=== PATIENT | male | born 1965 | race Hispanic/Latino ===

== ENCOUNTER → 2016-07-11 | Day surgery (SDC) | payer OTHER ==
[~2016-07-11] VITALS: Ht 185.4 cm; Wt 104.3 kg
[~2016-07-11] MED LIST: ALBU17IN INH; BACITRACIN PWD 50,000 UNITS VIAL As Ordered ONE; BUPIVACAINE HCL 0.5% 30 ML VIAL As Ordered ONE; LIDOCAINE 2% INJ 100 MG/5 ML SDV (FOR ANES.) As Ordered ONE; LIDOCAINE 2% MDV 20 ML VIAL As Ordered ONE; LR 1,000 ML IV ONE; MIDAZOLAM INJ 2 MG/2 ML VIAL (J2250) As Ordered ONE; NEOSPORIN GU IRRIG 20 ML VIAL IR ONE; PHENYLephrine HCL 500 MCG/5 ML (100MCG/ML) SYRINGE (J2370) As Ordered ONE; PROPOFOL 200 MG/20 ML VIAL As Ordered ONE; PROPOFOL 500 MG/50 ML VIAL As Ordered ONE; VANCOMYCIN HCL 1,000 MG, VIAL MATE ADAPTER 1 EACH in D5W 250 ML IV ONE; dexameTHASONE 4 MG/ML 1ML VIAL (J1100) As Ordered ONE; fentaNYL 100 MCG/2 ML INJECTION (J3010) As Ordered ONE
--- NOTE | 2016-07-11 11:47 | REP ---
REASON: Postop. Derotation osteotomy sites involving the proximal phalanges of digits 2 through 5 with internal fixators involving digits 2 through 4. The alignment is near anatomical. There is postoperative soft tissue swelling. Signed by Kade Quick DO 07/11/2016 12:25 P
[2016-07-11 14:00] VITALS: BP 120/75
--- NOTE | 2016-07-11 19:39 | RO ---
DATE OF PROCEDURE: 07/11/2016 PREPROCEDURE DIAGNOSIS: Hammer toe deformity second toe left foot, hammer toe deformity third toe left foot, hammer toe deformity fourth toe left foot, hammer toe deformity fifth toe left foot. POSTPROCEDURE DIAGNOSIS: Hammer toe deformity second toe left foot, hammer toe deformity third toe left foot, hammer toe deformity fourth toe left foot, hammer toe deformity fifth toe left foot. PROCEDURE: 1. Proximal interphalangeal joint fusion with DigiFuse 2.5 x 10 degree angled second toe left foot. 2. Proximal interphalangeal joint fusion with DigiFuse 2.0 x 10 degree angled third toe left foot. 3. Proximal interphalangeal joint fusion with DigiFuse 2.0 x 0 degree angled fourth toe left foot. 4. Proximal interphalangeal joint arthroplasty fifth toe left foot. 5. Dorsal capsulotomy second metatarsophalangeal joint left foot. 6. Dorsal capsulotomy third metatarsophalangeal joint left foot. 7. Dorsal capsulotomy fourth metatarsophalangeal joint left foot. SURGEON: Eugene Singh DPM [employer] SUPERINT[employer]ENT: None. ANESTHESIA: Local MAC. IRRIGATION: Dilute bacitracin, neomycin and polymyxin B solutions. HARDWARE UTILIZED: DigiFuse 2.0 x 10 degree angled, DigiFuse 2.5 x 10 degree angled and a DigiFuse 2.0 x 0 degree angled. HEMOSTASIS: Ankle pneumatic tourniquet at 200 mmHg for 63 minutes. DESCRIPTION OF PROCEDURE: On 07/11/2016, this 51-year-old black male was taken from his hospital room to the operating room and placed on the operating table in the supine position. Following the induction of IV sedation and local and regional anesthesia, the left lower extremity was prepped and draped in the usual aseptic manner. Left lower extremity was elevated 45 degrees from the horizontal plane for the purpose of preoperative exsanguination of the limb. During this 3-minute time period, an ankle pneumatic tourniquet was applied just proximal to the medial and lateral malleolus, well-padded site. To further exsanguinate the limb, a Felipe's Esmarch bandage was placed circumferentially extending from digits to distal edge of ankle pneumatic tourniquet. Ankle pneumatic tourniquet was rapidly inflated to 200 mmHg for the purpose of intraoperative hemostasis. Felipe's Esmarch bandage was removed. The left lower extremity was returned to the operating table, sterile draping was completed and the following procedure was performed: PROXIMAL INTERPHALANGEAL JOINT FUSION WITH DIGIFUSE 2.5 x 10 DEGREE ANGLED SECOND TOE LEFT FOOT: Attention was directed to the patient's second toe of the left foot where an incision was made distal to the second metatarsophalangeal joint over the proximal interphalangeal joint of the second toe. The incision was deepened through the subcutaneous tissues and all coursing venous tributaries were identified, underscored, clamp, cut, ligated and electrocoagulated as necessary. Transverse tenotomy and capsulotomy was performed at the level of the metatarsophalangeal joint and the extensor expansion and stephens was released to the level of the metatarsophalangeal joint. The medial and lateral collateral ligaments were then sharply dissected free from the head of the proximal phalanx. Utilizing a power saw, an osteotomy was performed at the level of the anatomical neck of the proximal phalanx from dorsal to plantar through and through and this was extirpated from the wound in toto. The cartilage at the base of the middle phalanx was osteotomized from dorsal to plantar just encompassing the articular cartilage and this was removed. The wound was flushed with copious amounts of dilute bacitracin, neomycin and polymyxin B solution. Utilizing a 2.5 x 10 degree angled DigiFuse in the standard manner, the proximal interphalangeal joint was fixated. The toe was still noted to be in a somewhat dorsal position; therefore, the following procedure was performed: SECOND METATARSOPHALANGEAL JOINT CAPSULOTOMY: The skin incision was then tented in a dorsal direction and utilizing a 67 blade, the dorsal capsule was released. The wound was flushed with copious amounts of dilute bacitracin, neomycin and polymyxin B solution. The extensor tendon was repaired with a #4-0 braided nylon looped suture and a four-stranded Cervantes core repair was performed. A peripheral stitch was then added with #4-0 braided nylon suture. Skin was then coapted and maintained with #4-0 Prolene in a simple interrupted and horizontal mattress type fashion. Attention was then directed to the patient's third toe of the left foot. The following procedure was performed: PROXIMAL INTERPHALANGEAL JOINT FUSION WITH DIGIFUSE 2.0 x 10 DEGREE ANGLED THIRD TOE LEFT FOOT: Attention was directed to the patient's third toe of the left foot. The procedure performed on the second toe was now performed on the third toe with the following variation: The DigiFuse size was a 2.0 x 10 degree angled. There was no other variations or deletions. Attention was then directed to the third metatarsophalangeal joint where the following procedure was performed: DORSAL CAPSULOTOMY THIRD METATARSOPHALANGEAL JOINT LEFT FOOT: Attention was directed to the patient's third metatarsophalangeal joint where the procedure performed on the second metatarsophalangeal joint was now performed on the third metatarsophalangeal joint without variation or deletion, the only exception being that of anatomical location. Attention was then directed to the patient's fourth toe of the left foot where the following procedure was performed: PROXIMAL INTERPHALANGEAL JOINT FUSION WITH DIGIFUSE 2.0 X 0 DEGREE ANGLED, FOURTH TOE LEFT FOOT: Attention was directed to the patient's fourth toe of the left foot. The procedure performed on the second toe was now performed on the fourth toe with the following variation: A 2.0 x 0 degree DigiFuse was utilized. Attention was then directed to the fourth metatarsophalangeal joint where the following procedure was performed: FOURTH METATARSOPHALANGEAL JOINT DORSAL CAPSULOTOMY: Attention was directed to the patient's fourth metatarsophalangeal joint capsule where the procedure performed on the second metatarsophalangeal joint was now performed on the fourth metatarsophalangeal joint without variation or deletion, the only exception being that of anatomical location. Attention was then directed to the patient's fifth toe where the following procedure was performed: PROXIMAL INTERPHALANGEAL JOINT ARTHROPLASTY FIFTH TOE LEFT FOOT: Attention was directed to the patient's fifth toe of the left foot. There was noted to be a hammer toe deformity. At this time, a 2 cm incision was placed over the proximal interphalangeal joint of the fifth toe. The incision was deepened through subcutaneous tissues and all coursing venous tributaries were identified, underscored, clamped, cut, ligated and electrocoagulated as necessary. A linear tenotomy was then performed in the same plane as the original skin incision and the extensor tendon was released to the level of the metatarsophalangeal joint. Utilizing a power saw, an osteotomy was then performed at the level of the anatomical neck of the proximal phalanx from dorsal to plantar, medial to lateral, through and through. This was extirpated from the wound in toto. The wound was flushed with copious amounts of dilute bacitracin, neomycin and polymyxin B solution. Utilizing a #4-0 braided nylon loop suture, a four-stranded Cervantes core repair was performed and additionally reinforced with #4-0 braided nylon peripheral stitch. Skin was coapted and maintained with #4-0 Prolene in a simple interrupted and horizontal mattress type fashion. Following the completion of the surgical procedure, 4 mg of dexamethasone sodium phosphate with 1 mL of 0.5% Marcaine was instilled along the surgical site. Attention was directed towards bandaging where a sterile compressive bandage was applied consisting of Adaptic, 4 x 4's, 4 x 4 splints, Mare, Kerlix and Coban. Ankle pneumatic tourniquet was rapidly deflated and instantaneous capillary filling time was noted in digits 1-5 of the patient's left foot. The patient having apparently tolerated the surgical procedure well was taken from the operating room to the recovery room, vital signs stable, patient afebrile, further monitoring by the anesthesia department. All surgical specimens removed during the operative procedure were sent to Pathology for gross and microscopic examination. Postoperative instructions given upon discharge.
== END ==
LOC: M SDC 08:04
PROVIDERS: ATTEND Podiatrist
DX: M20.42 Other hammer toe(s) (acquired), left foot (principal); L84 Corns and callosities; J45.909 Unspecified asthma, uncomplicated; F60.2 Antisocial personality disorder; F17.210 Nicotine dependence, cigarettes, uncomplicated; Z91.013 Allergy to seafood; Z91.011 Allergy to milk products; Z88.0 Allergy status to penicillin
CPT/HCPCS: 28270; 28285; 73630; 88300; 97116; C1776; J1100; J2250; J2370; J3010; J3370